=== PATIENT | male | born 1970 | race Caucasian/White ===

== ENCOUNTER → 2024-01-14 10:13 | Outpatient (REF) | payer BC, SELFPAY | LOC: HWRAD 10:13 | PROVIDERS: ATTENDING PHYSICIAN Surgery Vascular Surgery; FAMILY PHYSICIAN Family Medicine Sports Medicine | DX: I72.0 Aneurysm of carotid artery (principal) | CPT/HCPCS: 70496; 70498; Q9967 ==

== ENCOUNTER → 2024-01-20 08:53 | Outpatient (REF) | payer BC, SELFPAY | LOC: RAD 08:53 | PROVIDERS: ATTENDING PHYSICIAN Surgery Vascular Surgery; FAMILY PHYSICIAN Family Medicine | DX: I86.8 Varicose veins of other specified sites (principal); I77.89 Other specified disorders of arteries and arterioles | CPT/HCPCS: 76770; 93978 ==

== ENCOUNTER → 2024-10-21 09:29 | Outpatient (REF) | payer BC, SELFPAY | LOC: HWRAD 09:29 | PROVIDERS: ATTENDING PHYSICIAN Physician Assistant | DX: N50.812 Left testicular pain (principal) | CPT/HCPCS: 76870; 93976 ==